=== PATIENT | female | born 1950 | race Caucasian/White ===

== ENCOUNTER 2016-04-18 22:09 | Observation (INO) | payer MEDICARE, OTHER ==
--- NOTE | ~2016-04-18 | HP ---
History And Physical [facility] [address] [place]. [address] NAME: JEFERSON KHAN : 50 STATUS : ADM Lydia PAT#: [id number] AGE: 65 ADM/REG DATE : 04/18/16 MR#: [id number] REPORT SERV DATE: 04/19/16 DICTATED BY: MARI EATON DATE: 04/19/16 REPORT STATUS : Draft TRANSCRIBED BY: MODL DATE: 04/19/16 DATE OF ADMISSION: 04/18/2016 POINT OF ENTRY: [facility] Emergency Room. PRIMARY PROCESSOR HELPER: Dr. Ella Gamino. CHIEF COMPLAINT: Abdominal pain, nausea, diarrhea. HISTORY OF PRESENT ILLNESS: The patient is a 65-year-old female with a history of ulcerative colitis, on Colazal who underwent her annual screening colonoscopy on 04/[address] Gamino, the results of which showed a single polyp near the hepatic flexure which was removed for biopsy as well as some mild diverticulosis, but otherwise was unremarkable colonoscopy. Shortly after her colonoscopy, she started to develop sharp right lateral abdominal pain with associated nausea and multiple episodes of diarrhea. The pain continued today and she called Dr. Gamino's office who then instructed her to present to the emergency department for further evaluation given concern for possible postprocedural complication. Initial evaluation in the emergency department notable for labs otherwise unremarkable. CT scan of the abdomen and pelvis shows some mid ascending colitis without any evidence of diverticulosis. No evidence of any perforation or free air in the abdomen. She was started on some antibiotics as well as supportive care and admitted to the Hospitalist Service for further evaluation and management. COMPREHENSIVE REVIEW OF SYSTEMS: Otherwise negative unless listed in the history of present illness. PREVIOUS MEDICAL HISTORY: 1. Ulcerative colitis, on Colazal. 2. CVID, on biweekly Gamunex therapy. 3. Gastroesophageal reflux disease. 4. Fibromyalgia. 5. Osteoarthritis and degenerative disc disease. 6. Asthma. 7. Monoclonal gammopathy of uncertain significance. 8. Remote history of C. diff colitis 20 years ago. 9. Hypertension. 10.Hyperlipidemia. SURGICAL HISTORY: 1. Cholecystectomy. 2. Abdominal hysterectomy. 3. Cervical fusion x2. 4. Right shoulder surgery. History And Physical [address] [facility] [place]. [address] NAME: JEFERSON KHAN : 50 STATUS : ADM Lydia PAT#: [id number] AGE: 65 ADM/REG DATE : 04/18/16 MR#: [id number] REPORT SERV DATE: 04/19/16 DICTATED BY: MARI EATON DATE: 04/19/16 REPORT STATUS : Draft TRANSCRIBED BY: ANNABELLE DATE: 04/19/16 ALLERGIES: ARE TO IV DYE, ADHESIVE TAPE, AND WASP VENOM. HOME MEDICATIONS: 1. Tylenol p.r.n. 2. Albuterol two puff inhalation t.i.d. p.r.n. 3. Elavil 75 mg at bedtime. 4. Atenolol 100 mg daily. 5. Caltrate with vitamin D 600 mg b.i.d. 6. Soma 350 mg q.i.d. p.r.n. 7. Celebrex 200 mg daily. 8. Vitamin D 2000 units daily. 9. CoQ10 200 mg at bedtime. 10.Mucinex DM b.i.d. 11.Bentyl 10 mg t.i.d. 12.Benadryl 50 mg weekly with Gamunex. 13.EpiPen p.r.n. 14.Urmila 180 mg daily. 15.Folic acid 1 mg daily. 16.Hydrochlorothiazide 12.5 mg daily. 17.Melatonin 10 mg at bedtime. 18.Singulair 10 mg at bedtime. 19.Multivitamin one tab daily. 20.Procardia XL 90 mg daily. 21.Omeprazole 40 mg at bedtime. 22.Pravastatin 40 mg at bedtime. 23.Vitamin E 400 units at bedtime. 24.Tramadol 50 mg t.i.d. p.r.n. 25. injections. 26.Gamunex subcu injection weekly. 27.Probiotic one tab daily. 28.QVAR two puffs inhalation b.i.d. 29.Potassium gluconate 595 mg at bedtime. 30.Valtrex 500 mg b.i.d. p.r.n. 31.Colazal 2250 mg t.i.d. SOCIAL HISTORY: Denies any tobacco, alcohol, or illicits. FAMILY MEDICAL HISTORY: Mother with diabetes and coronary heart disease. Father at an early age of coronary artery disease. Siblings also with coronary artery disease. LABS AND IMAGIN. White count is 8.1, hemoglobin 11.2, hematocrit 33.5, and platelet count is 202,000. 2. Sodium is 138, potassium 3.4, chloride 97, carbon dioxide 29, BUN 14, creatinine 0.90, glucose is 96, calcium is 9.5, protein is 9.3, albumin is 3.0, bilirubin is 0.7, ALT is 26, AST 21, alkaline phosphatase is 97. 3. Urinalysis: Specific gravity is 1.009, hazy with small leukocyte esterase with 8 white blood cells per high-powered field with 9 epithelial cells. History And Physical [address] [address] NAME: JEFERSON KHAN : 50 STATUS : ADM Lydia PAT#: [id number] AGE: 65 ADM/REG DATE : 04/18/16 MR#: [id number] REPORT SERV DATE: 04/19/16 DICTATED BY: MARI EATON DATE: 04/19/16 REPORT STATUS : Draft TRANSCRIBED BY: ANNABELLE DATE: 04/19/[address] scan of the abdomen and pelvis shows mid ascending colon colitis with no evidence of any diverticulosis. No evidence of any perforation or free air. PHYSICAL EXAMINATION: VITAL SIGNS: Temperature is 98.7 degrees Fahrenheit, pulse is 78, respirations 19, saturating 97% on room air. Blood pressure is 155/90. GENERAL: The patient is awake, alert, no acute distress. Resting comfortably in bed. She is a well-developed, well-nourished, female. HEENT: Atraumatic and normocephalic. Moist mucous membranes. Pupils equal, round, reactive to light and accommodation. Extraocular eye movements intact. No scleral icterus. NECK: No jugular venous distention. No carotid bruits. CARDIAC: Regular rate and rhythm. No murmurs, rubs, or gallops. Normal S1, normal S2. LUNGS: Clear to auscultation bilaterally. No wheezes, rhonchi, or crackles. ABDOMEN: Soft. She is tender to palpation over the far right lateral aspect of her abdomen with no rebound guarding or rigidity. EXTREMITIES: Warm and well perfused. No cyanosis, clubbing, or edema. SKIN: Warm and dry. PSYCH: Appropriate. NEURO: Alert, oriented x3. Cranial nerves 2 through 12 grossly intact. Speech is normal. Gait not assessed. ASSESSMENT AND PLAN: The patient is a 65-year-old female with history of ulcerative colitis as well as common variable immune deficiency who presents with abdominal pain, one day post colonoscopy and found to have evidence of colitis. PROBLEM LIST: 1. Colitis. 2. Status post colonoscopy with polypectomy. 3. History of ulcerative colitis. 4. History of CVID. PLAN: 1. Colitis unclear etiology this time, unsure if this is a postprocedural complication or related to her known history of ulcerative colitis. We will empirically treat her with antibiotics of Levaquin and Flagyl as well supportive care with IV fluids, antiemetics, and pain control and consult the patient's primary tool and die designer Dr. Gamino for assistance. 2. Status post colonoscopy with polypectomy. No evidence of any abscess or perforation on CT imaging. We will consult Dr. Gamino for assistance. 3. History of ulcer colitis, continue patient's home Colazal. 4. History of C. diff. We will place the patient empirically on Florastor. Check stool cultures, C. diff as well as ova and parasites. 5. DVT prophylaxis. Lovenox subcu. CODE STATUS: The patient wished to be full code. History And Physical [address] [address] NAME: JEFERSON KHAN : 50 STATUS : ADM Lydia PAT#: [id number] AGE: 65 ADM/REG DATE : 04/18/16 MR#: [id number] REPORT SERV DATE: 04/19/16 DICTATED BY: MARI EATON DATE: 04/19/16 REPORT STATUS : Draft TRANSCRIBED BY: MODL DATE: 04/19/16 LORI/ANNABELLE Mari Eaton MD / [id number] CC: Isac Pruitt Jr, MD Chirag Patel, M.D. Colleen Schmitt, M.D.
--- NOTE | ~2016-04-18 | DS ---
Discharge Summary [place] [id number] [facility] [place]. [address] NAME: JEFERSON KHAN : 50 STATUS : DIS IN PAT#: [id number] AGE: 65 ADM/REG DATE : 04/19/16 MR#: [id number] REPORT SERV DATE: 04/22/16 DICTATED BY: RINA HOFF DATE: 04/21/16 REPORT STATUS : Draft TRANSCRIBED BY: MODL DATE: 04/21/16 ADMISSION DATE: 04/19/2016 DISCHARGE DATE: 04/21/2016 REASON FOR ADMISSION: Acute ascending colitis, status post colonoscopy. HISTORY OF PRESENT ILLNESS: Please refer Dr. Brian Vora's history and physical dated 04/18/2016 for complete details regarding the patient's admission. In brief, the patient was admitted to the Hospitalist Service for management of her ascending colitis. HOSPITAL COURSE: The patient has had a colonoscopy done by Dr. Ella Gamino as an outpatient. She has had numerous colonoscopies in the past for her history of ulcerative colitis without any complications. Dr. Gamino had found a polyp and did polypectomy. She was sent home from having an outpatient colonoscopy and then she started having worsening right-sided abdominal pain. She presented to the ER, whereby she had a CAT scan of abdomen and pelvis done without contrast showing circumferential thickening of a 12-cm long segment of the mid ascending colon with inflammation of the surrounding fat planes suggesting short- segment acute colitis pattern. No underlying diverticulosis. She was started on IV Levaquin and Flagyl and Dilaudid for pain control. Dr. Cardoso was covering for Dr. Gamino, was consulted and recommended continuing the current regimen. She was started on a clear liquid diet and had been advancing. Her pain has mostly resolved. She has no more nausea or any vomiting. She is tolerating liquid diet well and is requesting to go home. She will be discharged home in stable condition. DISCHARGE DIAGNOSES: Acute ascending colitis, status post colonoscopy, now resolving; nausea and vomiting, now resolved; abdominal pain secondary to ascending colitis; ulcerative colitis; chronic variable immunodeficiency syndrome; fibromyalgia; osteoarthritis; morbid obesity; a history of Clostridium difficile colitis; hypertension; hyperlipidemia. PROCEDURES: Include CT scan of the abdomen. CONSULTATIONS: With Dr. Clifford and Dr. Cardoso. DISCHARGE MEDICATIONS: Include Elavil 75 mg once a day, Tenormin 100 mg every morning, Celebrex 200 mg daily, Caltrate 600 mg twice a day, Mucinex daily, multivitamin, vitamin D3, coenzyme Q, Bentyl 10 mg three times a day, Benadryl p.r.n., folic acid 1 mg every day, hydrochlorothiazide 12.5 mg once a day, Urmila daily, melatonin daily, Singulair daily, nifedipine XL 90 mg every morning, Prilosec 40 mg at bedtime, Pravachol 40 mg at bedtime, vitamin E 400 units at bedtime, EpiPen p.r.n., tramadol p.r.n. pain, probiotic, Valtrex p.r.n., Soma p.r.n., Qvar two puffs twice a day, albuterol p.r.n., Tylenol p.r.n., Lortab 5/325 every eight hours p.r.n. pain #20 given, Levaquin 750 mg once a day for seven days, Flagyl 500 mg three times a day for seven days. FOLLOWUP: The patient will follow up with Dr. Gamino as scheduled. Discharge Summary [address] [address] NAME: JEFERSON KHAN : 50 STATUS : DIS IN PAT#: [id number] AGE: 65 ADM/REG DATE : 04/19/16 MR#: [id number] REPORT SERV DATE: 04/22/16 DICTATED BY: RINA HOFF DATE: 04/21/16 REPORT STATUS : Draft TRANSCRIBED BY: MODSean DATE: 04/21/16 SHAYE Rina Hoff MD / [id number] CC: Isac Pruitt Jr, MD Colleen Schmitt, M.D. Chirag Patel, M.D.
--- NOTE | ~2016-04-18 | CN ---
Consultation Report [facility] [address] [place]. [address] NAME: JEFERSON MCWILLIAMS : 50 STATUS : ADM IN PAT#: [id number] AGE: 65 ADM/REG DATE : 04/19/16 MR#: [id number] REPORT SERV DATE: 04/20/16 DICTATED BY: JUAN OLSON DATE: 04/19/16 REPORT STATUS : Draft TRANSCRIBED BY: MODSean DATE: 04/19/16 GI CONSULTATION DATE OF CONSULTATION: 04/19/2016 REASON FOR CONSULTATION: Evaluation and management of abdominal pain, history of ulcerative colitis, status post colonoscopy. HISTORY OF PRESENT ILLNESS: Ms. Mcwilliams is a very pleasant 65-year-old female patient, known to Dr. Gamino, who presented to [facility] on the with a chief complaint of abdominal pain, nausea, and diarrhea. She has a history of ulcerative colitis. She was seen by Dr. Gamino on the for a screening colonoscopy. The findings on that exam showed a 10 mm polyp in the hepatic flexure that was removed, diverticulosis in the sigmoid colon. She had multiple biopsies taken for ulcerative colitis surveillance. Specimens were sent to pathology. She had staining colonoscopy with methylene blue performed. At that time, the patient states that immediately after awakening from the procedure, she had a large liquid output from her rectum that was blue and she continued to pass blue urine for a day; however, she states that immediately post procedure, she had nausea, which is not typical for her. She had abdominal pain, which she could not rest the night after the colonoscopy, had to sleep sitting up in her chair. Every time she states that she would try to eat the next day, it went right through her. Therefore, she called the office. She was directed to come to the emergency room. She had a CT scan done without contrast showing circumferential thickening of a 12 cm long segment of the mid ascending colon with infiltration of the surrounding fat plane suggesting a short segment acute colitis pattern less likely infiltrating neoplastic process. White count was normal at 8.1, hemoglobin was 11.2. She continued to have pain, but not as severe. Nausea has improved. No bowel movement since being in the emergency room overnight. I have discussed with her. We will obtain stool studies. We will keep her on the IV antibiotics that were started in the emergency room as well as her ulcerative colitis medications. We will discuss with Dr. Clifford if initiation of any steroids would be of benefit given her history of ulcerative colitis. PAST MEDICAL HISTORY: Positive for ulcerative colitis on balsalazide, chronic variable immunodeficiency syndrome, GERD, fibromyalgia, osteoarthritis, degenerative disk disease, asthma, monoclonal gammopathy, C. diff 20+ years ago, hypertension, hyperlipidemia. PAST SURGICAL HISTORY: Cholecystectomy, hysterectomy, cervical fusion, shoulder surgery. HOME MEDICATIONS: Tylenol, albuterol, Elavil, atenolol, Caltrate, Soma, Celebrex, vitamin D, COQ10, Mucinex, Benadryl, Bentyl, EpiPen, Urmila, folic acid, hydrochlorothiazide, melatonin, Singulair, multivitamin, Procardia, omeprazole, pravastatin, vitamin E, tramadol, Gamunex subcu injection, probiotic, QVAR, potassium gluconate, Valtrex, and Colazal. SOCIAL HISTORY: She denies any alcohol, tobacco, or illicit drugs. Consultation Report [address] [address] NAME: JEFERSON MCWILLIAMS : 50 STATUS : ADM IN PAT#: [id number] AGE: 65 ADM/REG DATE : 04/19/16 MR#: [id number] REPORT SERV DATE: 04/20/16 DICTATED BY: JUAN OLSON DATE: 04/19/16 REPORT STATUS : Draft TRANSCRIBED BY: ANNABELLE DATE: 04/19/16 FAMILY HISTORY: Noncontributory from a GI standpoint. REVIEW OF SYSTEMS: A 10-point review of systems has been obtained with pertinent positives being addressed in the history of present illness. PHYSICAL EXAMINATION: VITAL SIGNS: Temperature 98.5, pulse is 65, respirations 17, blood pressure is 157/69. GENERAL: An alert, female, resting in bed. No focal deficits. Obese body habitus. In general, she is cooperative. She is awake, alert, oriented x3. HEAD EARS, EYES, NOSE, AND THROAT: Anicteric. Pupils equal, round, reactive to light accommodation. Normocephalic and atraumatic. NECK: No JVD. No palpable nodes. LUNGS: Diminished throughout. Normal respiratory effort exhibited. CARDIOVASCULAR SYSTEM: Regular rate and rhythm. ABDOMEN: Soft, obese with tenderness to palpation on the right side. No rebound or guarding elicited. No organomegaly appreciated. EXTREMITIES: No edema. Normal distal pulses. SKIN: Warm, dry, and intact. LABORATORY DATA: Sodium 142, potassium 3.3, BUN is 11, creatinine 0.76. White count 7.9, hemoglobin 10.8, hematocrit 32.5. ASSESSMENT: 1. Acute ascending colitis status post colonoscopy. 2. Diarrhea, nausea, vomiting. 3. Abdominal pain. 4. History of ulcerative colitis. 5. Chronic variable immunodeficiency syndrome. PLAN: 1. Stool studies. 2. Clear liquid diet. 3. Increase her Dilaudid. 4. We will discuss with Dr. Clifford if Solu-Medrol would be of benefit. LALO/ANNABELLE Juan OSWALD Woodall / [id number] Consultation Report [address] [address] NAME: JEFERSON MCWILLIAMS : 50 STATUS : ADM IN PAT#: [id number] AGE: 65 ADM/REG DATE : 04/19/16 MR#: [id number] REPORT SERV DATE: 04/20/16 DICTATED BY: JUAN OLSON DATE: 04/19/16 REPORT STATUS : Draft TRANSCRIBED BY: ANNABELLE DATE: 04/19/16 CC: Isac Pruitt Jr, MD
[2016-04-18 17:17] LABS: BASOPHILS 0.1 %; BASOPHILS ABSOLUTE 0.01 10/3/uL (0.0-0.16); EOSINOPHILS 0.2 %; EOSINOPHILS ABSOLUTE 0.02 10/3/uL (0.0-0.53); ER CBC TAT 0 Hrs 05 Mins; HEMOGLOBIN 11.2 g/dL (12.0-16.0); IMMATURE GRANULOCYTES 0.1 %; IMMATURE GRANULOCYTES ABSOLUTE 0.01 10/3/uL (0.0-0.11); LYMPHOCYTES 23.8 %; LYMPHOCYTES ABSOLUTE 1.92 10/3/uL (0.67-4.30); MEAN CORPUS HGB CONC 33.4 g/dL (32.0-36.0); MEAN PLATELET VOLUME 9.7 fL (9.2-13.0); MONOCYTES 7.3 %; MONOCYTES ABSOLUTE 0.59 10/3/uL (0.21-1.20); NEUTROPHILS 68.5 %; NEUTROPHILS ABSOLUTE 5.52 10/3/uL (2.02-8.40); PLATELET COUNT 202 10/3/uL (150-400); RBC DISTRIBUTION WIDTH 14.3 % (12.0-16.0); WHITE BLOOD CELLS 8.1 10/3/uL (4.5-10.5)
[2016-04-18 17:18] LABS: HEMATOCRIT 33.5 % (36.0-48.0); MANUAL DIFF NO %; MEAN CORPUSCULAR VOLUME 95.7 fL (80-100)
[2016-04-18 17:33] LABS: A/G RATIO 0.5 (0.7-1.9); ALKALINE PHOSPHATASE 97 U/L (45-117); BUN (BLOOD UREA NITROGEN) 14 MG/DL (6-23); CALCIUM, SERUM 9.5 MG/DL (8.5-10.4); CHLORIDE, SERUM 97 MMOL/L (96-112); CO2 (CARBON DIOXIDE) 29 MMOL/L (24-34); GFR AFRICAN AMERICAN 78 ML/MIN (>=60); GFR NON AFRICAN AMERICAN 67 ML/MIN (>=60); GLOBULIN 6.3 G/DL (2.5-4.1); GLUCOSE, SERUM 96 MG/DL (60-99); POTASSIUM, SERUM 3.4 MMOL/L (3.5-5.3); SGOT(AST) 21 U/L (5-40); SGPT(ALT) 26 U/L (5-65); SODIUM, SERUM 138 MMOL/L (135-148); TOTAL BILIRUBIN 0.7 MG/DL (0-1.2); TOTAL PROTEIN 9.3 G/DL (6.0-8.5)
[2016-04-18 18:16] LABS: ASCORBIC ACID (UR NOT ORDER) NEG (NEG); BILIRUBIN, URINE NEGATIVE (NEG); ER URINALYSIS TAT 0 Hrs 07 Mins; KETONE, URINE NEGATIVE (NEG); LEUKOCYTE ESTERASE(NOT OR SMALL (NEG); NITRITE (URINE) NEG (NEG); WBC (NOT ORDERED) (RFLEX) 8 (0-5)
[~2016-04-18 22:09] MED LIST: ALLEGRA180 PO; ALLERGY INJECTION; ALLERGY INJECTIONS SC; AMB10 PO; AMIT75 PO; ATEN100 PO; ATROVENT HFA17 MCG INH; BEN25UDL PO; BENTYL10 PO; CALTRA600D PO; CELEBREX1 PO; CELEBREX2 PO; COLAZAL 750 MG750 MG PO; DCN100 PO; EPIPEN0.3 IM; FISH OIL1200 MG PO; FISH-EPA1000 MG PO; FOLIC PO; GAMMUNEX SC; GAMUNEX 10% SC; GAMUNEX C SC; HYDROCHLOROT12.5 MG PO; MAXAIR AUTOHALE1 INH INH; MINIVELLE1 EACH TOP; MIRALAXPKT PO; MUCINEX DM1 TA1 PO; MUCINEX DM1 TAB OR; MULTIVITAMI1 PO; NXL9 PO; PRAVAC PO; PRAVACHOL40 MG PO; PRILO PO; PRILOSEC40 MG PO; PROAIR HFA INH; PROBIOTIC ALIGN PO; QVAR 80MCG INH; SINGULAIR1 PO; SKELAXIN8 PO; SOMATAB PO; ULTRAM50 PO; VALTREX5 PO; VITAMIN D31000 UNIT PO; VITE PO; VITE1000 PO; XOPENEX HFA INH; ZANAFLEX 4 MG TA4 MG; ZANTAC 75 PO; ZOCOR20 PO
[2016-04-18] MEDS ORDERED: CENTRUM PO (23:37)
[2016-04-18] MEDS ORDERED: 8 HOUR650 MG PO (23:42)
[2016-04-18] MEDS ORDERED: CO Q-10200 MG PO (23:42)
[2016-04-18] MEDS ORDERED: POTASSIUM GLUCONATE PO (23:42)
[2016-04-18] MEDS ORDERED: MELATONIN5 M1 PO (23:43)
[2016-04-19 05:35] LABS: BASOPHILS 0.1 %; BASOPHILS ABSOLUTE 0.01 10/3/uL (0.0-0.16); EOSINOPHILS 0.5 %; EOSINOPHILS ABSOLUTE 0.04 10/3/uL (0.0-0.53); HEMATOCRIT 32.5 % (36.0-48.0); HEMOGLOBIN 10.8 g/dL (12.0-16.0); IMMATURE GRANULOCYTES 0.1 %; IMMATURE GRANULOCYTES ABSOLUTE 0.01 10/3/uL (0.0-0.11); LYMPHOCYTES 35.1 %; LYMPHOCYTES ABSOLUTE 2.76 10/3/uL (0.67-4.30); MEAN CORPUS HGB CONC 33.2 g/dL (32.0-36.0); MEAN CORPUSCULAR HEMOGLOB 32.1 pg (26.0-34.0); MEAN CORPUSCULAR VOLUME 96.7 fL (80-100); MEAN PLATELET VOLUME 10.1 fL (9.2-13.0); MONOCYTES ABSOLUTE 0.55 10/3/uL (0.21-1.20); NEUTROPHILS 57.2 %; PLATELET COUNT 201 10/3/uL (150-400); RBC DISTRIBUTION WIDTH 14.2 % (12.0-16.0); RED CELL COUNT 3.36 10/6/uL (4.0-5.6); WHITE BLOOD CELLS 7.9 10/3/uL (4.5-10.5)
[2016-04-19 05:36] LABS: MANUAL DIFF NO %
[2016-04-19 05:46] LABS: BUN (BLOOD UREA NITROGEN) 11 MG/DL (6-23); CALCIUM, SERUM 9.7 MG/DL (8.5-10.4); CHLORIDE, SERUM 102 MMOL/L (96-112); CO2 (CARBON DIOXIDE) 30 MMOL/L (24-34); CREATININE 0.76 MG/DL (0.55-1.02); GFR AFRICAN AMERICAN 95 ML/MIN (>=60); GFR NON AFRICAN AMERICAN 82 ML/MIN (>=60); GLUCOSE, SERUM 101 MG/DL (60-99); POTASSIUM, SERUM 3.3 MMOL/L (3.5-5.3); SODIUM, SERUM 142 MMOL/L (135-148)
[2016-04-20 05:43] LABS: BASOPHILS 0.1 %; BASOPHILS ABSOLUTE 0.01 10/3/uL (0.0-0.16); EOSINOPHILS 0.1 %; EOSINOPHILS ABSOLUTE 0.01 10/3/uL (0.0-0.53); HEMATOCRIT 31.8 % (36.0-48.0); HEMOGLOBIN 10.4 g/dL (12.0-16.0); IMMATURE GRANULOCYTES 0.1 %; IMMATURE GRANULOCYTES ABSOLUTE 0.01 10/3/uL (0.0-0.11); LYMPHOCYTES 22.1 %; LYMPHOCYTES ABSOLUTE 1.51 10/3/uL (0.67-4.30); MEAN CORPUS HGB CONC 32.7 g/dL (32.0-36.0); MEAN CORPUSCULAR HEMOGLOB 31.7 pg (26.0-34.0); MEAN PLATELET VOLUME 10.1 fL (9.2-13.0); MONOCYTES 7.2 %; MONOCYTES ABSOLUTE 0.49 10/3/uL (0.21-1.20); NEUTROPHILS 70.4 %; PLATELET COUNT 205 10/3/uL (150-400); RBC DISTRIBUTION WIDTH 14.1 % (12.0-16.0); RED CELL COUNT 3.28 10/6/uL (4.0-5.6); WHITE BLOOD CELLS 6.8 10/3/uL (4.5-10.5)
[2016-04-20 05:46] LABS: MANUAL DIFF NO %
[2016-04-20 05:57] LABS: BUN (BLOOD UREA NITROGEN) 14 MG/DL (6-23); CALCIUM, SERUM 9.9 MG/DL (8.5-10.4); CHLORIDE, SERUM 100 MMOL/L (96-112); CO2 (CARBON DIOXIDE) 26 MMOL/L (24-34); CREATININE 0.68 MG/DL (0.55-1.02); GFR AFRICAN AMERICAN 106 ML/MIN (>=60); GFR NON AFRICAN AMERICAN 92 ML/MIN (>=60); GLUCOSE, SERUM 97 MG/DL (60-99); SODIUM, SERUM 137 MMOL/L (135-148)
[2016-04-21] MEDS ORDERED: NORCO1 TA1 PO (10:30)
[2016-04-21] MEDS ORDERED: FLAG500TAB PO (10:30)
[2016-04-21] MEDS ORDERED: LEVAQUIN750 MG PO (10:31)
== END 2016-04-21 14:30 | disposition home or self-care (01) ==
LOC: ER 22:09 → CDU1 23:59
PROVIDERS: Emergency Medicine; Internal Medicine
DX: K52.9 Noninfective gastroenteritis and colitis, unspecified (principal); B20 Human immunodeficiency virus [HIV] disease; M79.7 Fibromyalgia; M19.90 Unspecified osteoarthritis, unspecified site; E66.01 Morbid (severe) obesity due to excess calories; E78.00 Pure hypercholesterolemia, unspecified; J45.909 Unspecified asthma, uncomplicated; D64.9 Anemia, unspecified; E89.0 Postprocedural hypothyroidism; I10 Essential (primary) hypertension; E78.5 Hyperlipidemia, unspecified; Z79.52 Long term (current) use of systemic steroids; Z79.899 Other long term (current) drug therapy; Z87.19 Personal history of other diseases of the digestive system; Z91.041 Radiographic dye allergy status; Z98.1 Arthrodesis status; Z90.49 Acquired absence of other specified parts of digestive tract; Z90.711 Acquired absence of uterus with remaining cervical stump; Z98.890 Other specified postprocedural states; Z83.3 Family history of diabetes mellitus; Z82.49 Family history of ischemic heart disease and other diseases of the circulatory system
CPT/HCPCS: 74176; 80048; 80053; 81001; 83690; 84132; 85025; 85652; 86140; 87086; 87493; 87493-59; 94640; 96374; 96375; 96376; 99285; A9270-GY; G0378; J1170; J1956; J2405; J2920